=== PATIENT | female | born 1970 | race Caucasian/White ===

== ENCOUNTER 2022-01-18 14:51 | Outpatient (CLI) | payer OTHER, SELFPAY ==
[2022-01-18 20:05] LABS: Hematocrit 40.1 % (37.0-47.0); Mean Corpuscular HGB Conc 32.4 g/dl (32-36); Mean Corpuscular Hemoglobin 29.8 pg (26-34); Mean Platelet Volume 11.1 fl (7.4-10.4); Platelet Count Result 267 k/mm3 (150-375); Red Blood Count 4.36 M/mm3 (4.2-5.4); Red Cell Distribution Width 16.9 % (11.5-14.5); White Blood Count 12.1 K/mm3 (4.5-10.0)
[2022-01-18 20:20] LABS: Alanine Aminotransferase 62 U/L (4-35); Albumin Level 4.4 g/dL (3.5-5.1); Alkaline Phosphatase 96 U/L (38-126); Anion Gap 3 mmol/L (8-16); Aspartate Amino Transferase 64 U/L (14-36); Bilirubin,Total 0.3 mg/dL (0.2-1.3); Blood Urea Nitrogen 13 mg/dL (7-17); Calcium 9.6 mg/dL (8.4-10.2); Carbon Dioxide 32 mmol/L (22-30); Chloride 105 mmol/L (98-107); Cholesterol 230 mg/dL (0-200); Estimated Glomerular Filt Rate > 60; Glucose 85 mg/dL (65-110); HDL Direct 45 mg/dL; Potassium 4.3 mmol/L (3.4-5.0); Sodium 140 mmol/L (137-145); Triglycerides 178 mg/dL (<150)
[2022-01-18 20:31] LABS: LDL Cholesterol Direct 152 mg/dL
[2022-01-18 21:05] LABS: Hemoglobin A1C 5.8 % (<5.7)
[2022-01-21 13:56] LABS: Amphetamines NEGATIVE ng/mL (<500); Barbiturates NEGATIVE ng/mL (<300); Benzodiazepines NEGATIVE ng/mL (<100); Cocaine Metabolite NEGATIVE ng/mL (<100); Codeine NEGATIVE ng/mL (<50); Hydrocodone 380 ng/mL (<50); Hydromorphone 270 ng/mL (<50); Marijuana Metabolite NEGATIVE ng/mL (<20); Methadone Metabolite NEGATIVE ng/mL (<100); Morphine NEGATIVE ng/mL (<50); Norhydrocodone 810 ng/mL (<50); Opiates POSITIVE ng/mL (<100); Oxidant NEGATIVE mcg/mL (<200); pH 6.9 (4.5-9.0)
== END 2022-01-18 14:52 | disposition home or self-care (01) ==
LOC: ANHBWCLAB 14:53
PROVIDERS: PCP Family Medicine; Visit Provider Family Medicine
DX: Z00.00 Encounter for general adult medical examination without abnormal findings (principal); F32.A Depression, unspecified; F41.9 Anxiety disorder, unspecified; I10 Essential (primary) hypertension; M79.7 Fibromyalgia; E66.9 Obesity, unspecified
CPT/HCPCS: 36415; 80053; 80061; 80299; 83036; 84443; 85027

== ENCOUNTER 2022-02-22 15:09 | Outpatient (CLI) | payer OTHER, SELFPAY ==
--- NOTE | ~2022-02-22 | XR_ITS ---
XR chest 2V DATE: 02/22/2022 15:25 INDICATION: Cough, mild shortness of breath for 2 weeks TECHNIQUE: PA and lateral views COMPARISON: None FINDINGS: Normal heart size. No hilar or mediastinal enlargement. No pulmonary consolidation. No pleu ral effusion or pulmonary vascular congestion or pneumothorax. Mild pulmonary interstitial prominence ; is there a history of smoking? Diffuse osteopenia. IMPRESSION: No active cardiopulmonary disease Osteopenia Reviewed, dictated and finalized at location A.
[2022-02-22 19:15] LABS: Basophils Absolute Auto 0.1 K/mm3 (0.0-0.1); Basophils Percent Auto 0.6 % (0.2-1.2); Eosinophils Absolute Auto 0.4 K/mm3 (0-0.3); Eosinophils Percent Auto 3.7 % (0-4.4); Hematocrit 41.3 % (37.0-47.0); Hemoglobin 13.2 g/dL (12.0-15.0); Immature Granulocyte Absolute 0.07 K/mm3 (0.00-0.031); Immature Granulocyte Percent A 0.7 % (0-0.5); Lymphocytes Absolute Auto 2.71 K/mm3 (0.9-3.2); Lymphocytes Percent Auto 28.8 % (18.3-44.2); Mean Corpuscular Hemoglobin 29.9 pg (26-34); Mean Corpuscular Volume 93.7 fl (80-100); Mean Platelet Volume 11.3 fl (7.4-10.4); Monocytes Percent Auto 10.1 % (2.6-8.5); Neutrophils Absolute Auto 5.3 K/mm3 (1.3-6.7); Neutrophils Percent Auto 56.1 % (45.5-73.1); Platelet Count Result 248 k/mm3 (150-375); Red Blood Count 4.41 M/mm3 (4.2-5.4); Red Cell Distribution Width 15.7 % (11.5-14.5); White Blood Count 9.4 K/mm3 (4.5-10.0)
[2022-02-22 19:21] LABS: Appearance Urine Clear (Clear); Bilirubin Urine Negative (Negative); Color Urine Yellow (Yellow); Glucose Urine UA Negative (Negative); Ketones Urine Negative (Negative); Leukocyte Esterase Ur Negative LEU/UL (NEGATIVE); Nitrate Urine Negative (Negative); Protein Urine Negative (Negative); Urobilinogen Urine 0.2 mg/dL (<2.0)
[2022-02-22 19:32] LABS: Alanine Aminotransferase 22 U/L (4-35); Albumin Level 4.4 g/dL (3.5-5.1); Alkaline Phosphatase 76 U/L (38-126); Aspartate Amino Transferase 33 U/L (14-36); Bilirubin,Total 0.3 mg/dL (0.2-1.3)
[2022-02-22 19:39] LABS: Add Urine Microscopic? YES; Blood Urine Trace (Negative)
[2022-02-23 00:08] LABS: Hepatitis B Surface Antigen Negative (Negative)
[2022-02-23 00:13] LABS: HAV RESULT Negative (Negative); Hepatitis B Core IgM Result Negative (Negative)
[2022-02-23 00:25] LABS: Hepatitis C Virus Antibody Negative (Negative)
== END 2022-02-22 15:10 | disposition home or self-care (01) ==
LOC: ANHBWCLAB 15:10
PROVIDERS: PCP Family Medicine; Visit Provider Family Medicine
DX: R05.9 Cough, unspecified (principal); R74.8 Abnormal levels of other serum enzymes; R73.03 Prediabetes; E78.5 Hyperlipidemia, unspecified
CPT/HCPCS: 36415; 71046; 80074; 80076; 81001; 85025; 87086

== ENCOUNTER 2022-05-05 13:39 | Outpatient (CLI) | payer OTHER, SELFPAY ==
[2022-05-05 18:35] LABS: Basophils Absolute Auto 0.1 K/mm3 (0.0-0.1); Basophils Percent Auto 0.7 % (0.2-1.2); Eosinophils Absolute Auto 0.2 K/mm3 (0-0.3); Eosinophils Percent Auto 3.1 % (0-4.4); Hematocrit 38.7 % (37.0-47.0); Hemoglobin 12.2 g/dL (12.0-15.0); Immature Granulocyte Absolute 0.03 K/mm3 (0.00-0.031); Immature Granulocyte Percent A 0.4 % (0-0.5); Lymphocytes Absolute Auto 2.66 K/mm3 (0.9-3.2); Lymphocytes Percent Auto 35.8 % (18.3-44.2); Mean Corpuscular HGB Conc 31.5 g/dl (32-36); Mean Corpuscular Hemoglobin 28.8 pg (26-34); Mean Corpuscular Volume 91.3 fl (80-100); Mean Platelet Volume 11.6 fl (7.4-10.4); Monocytes Absolute Auto 0.7 K/mm3 (0.1-0.6); Monocytes Percent Auto 8.8 % (2.6-8.5); Neutrophils Absolute Auto 3.8 K/mm3 (1.3-6.7); Neutrophils Percent Auto 51.2 % (45.5-73.1); Platelet Count Result 250 k/mm3 (150-375); Red Blood Count 4.24 M/mm3 (4.2-5.4); Red Cell Distribution Width 14.5 % (11.5-14.5); White Blood Count 7.4 K/mm3 (4.5-10.0)
== END 2022-05-05 13:40 | disposition home or self-care (01) ==
LOC: ANHBWCLAB 13:40
PROVIDERS: PCP Family Medicine; Visit Provider Family Medicine
DX: D64.9 Anemia, unspecified (principal)
CPT/HCPCS: 36415; 85025

== ENCOUNTER 2022-08-15 00:49 | Day surgery (SDC) | payer OTHER, SELFPAY ==
[2022-07-28 14:32] VITALS: BMI 37.5
[2022-08-15 09:25] VITALS: BP 123/72; PULSE 90; RESP 18; TEMP 36.4; O2SAT 98; BMI 36.1
[2022-08-15] MEDS: LACTATED RINGERS 1,000 ML 150 ML IV CONT (09:48)
--- NOTE | 2022-08-15 09:57 | PM.HPGS ---
History of Present Illness History of Present Illness Consent: Risks, benefits, and alternatives have been discussed and questions answered. Patient agrees to proceed with procedure. Chief complaint: hx of colon polyps Narrative: Alice Ferreira is a 51 year old female here for screening colonoscopy, last one 10 years ago Review of Systems Constitutional: Constitutional: Denies headache(s) and Denies weakness Eyes: Eyes: Denies blurry vision ENT: Reports Normal hearing present, Denies headache(s) and Denies neck pain Cardiovascular: Cardiovascular: Denies chest pain and Denies dyspnea Respiratory: Respiratory: Denies dyspnea Gastrointestinal: Gastrointestinal: Reports no additional gastrointestinal complaints Genitourinary: Genitourinary: Denies dysuria Musculoskeletal: Musculoskeletal: Denies neck pain Integumentary/Breasts: Skin/Breast: Denies dry skin Neurologic: Reports Normal hearing present, Denies headache(s) and Denies weakness Psychiatric: Psychiatric: Denies anxiety Endocrine: Endocrine: Denies change in body appearance Hematologic/Lymphatic: Hematologic/Lymphatic: Denies easy bleeding Allergic/Immunologic: Allergic/Immunologic: Denies urticaria PMFSH Past Medical History Medical History (Updated 05/05/22 @ 13:12 by Ned Trotter MD) Anxiety Arthritis Fibromyalgia GERD (gastroesophageal reflux disease) Surgical History Surgical History (Updated 01/18/22 @ 13:23 by Kala Pruett [facility]) H/O: hysterectomy Family History Family History (Updated 01/18/22 @ 13:21 by Kala Pruett CMA) Father Alcohol abuse Mother Diabetes mellitus Hypertension Heart disease Cerebrovascular accident Depression Anxiety Sibling Diabetes mellitus Depression Anxiety Grandparent Alcohol abuse Diabetes mellitus Hypertension Grandparent Alcohol abuse Diabetes mellitus Hypertension Social History Social History (Updated 01/18/22 @ 13:24 by Kala Pruett [facility]) Smoking packs per day: 1 Smoking cigarettes per day: 20.0 Smoking status: Current every day smoker Tobacco type: cigarettes and e-cigarettes/vaping Alcohol intake: never Substance use: never Meds Home Medications and Allergies Home Medications Medication Instructions Recorded Confirmed Type albuterol sulfate 90 mcg/actuation 1 inh inhalation BID PRN 01/18/22 08/15/22 Rx aerosol inhaler (Ventolin HFA) bronchospasm #8.5 grams budesonide-formoterol HFA 160 2 puff inhalation Q12H #10.2 grams 01/18/22 08/15/22 Rx mcg-4.5 mcg/actuation aerosol inhaler (Symbicort) ergocalciferol (vitamin D2) 50,000 500,000 unit PO WEEKLY 01/18/22 08/15/22 History unit tablet cyclobenzaprine 10 mg tablet 10 mg PO TID PRN muscle spasm #90 05/01/22 08/15/22 Rx tabs pregabalin 200 mg capsule 200 mg PO BID #180 caps 07/14/22 08/15/22 Rx hydrocodone 5 mg-acetaminophen 325 1 tablet PO Q8H PRN pain #90 tabs 07/26/22 08/15/22 Rx mg tablet phentermine 37.5 mg capsule 37.5 mg PO DAILY #30 caps 08/02/22 08/15/22 Rx topiramate 50 mg tablet 50 mg PO BID #60 tabs 08/02/22 08/15/22 Rx trazodone 50 mg tablet 50 mg PO QHS PRN insomnia #90 tabs 08/02/22 08/15/22 Rx Allergies Allergy/AdvReac Type Severity Reaction Status Date / Time morphine Allergy Migraine Verified 08/15/22 09:34 trimethobenzamide Allergy Nausea Verified 08/15/22 09:34 [From [facility]] Vital Signs Vital Signs - 24 hr 08/15/22 09:25 Temperature 97.5 F L Pulse Rate 90 Respiratory Rate 18 Blood Pressure 123/72 Pulse Oximetry 98 Oxygen Delivery Room Air Exam Const: General: comfortable and no acute distress HENMT: General nose exam: Normal nares present Eyes: General: appearance normal, both eyes and all related structures Neck: Neck: no JVD Resp: Auscultation: clear to auscultation bilaterally Cardio: Rate: regular rate Rhythm: regular rhythm GI: Inspection: non-distended GI Palp: Yes Soft to palpation
--- NOTE | 2022-08-15 10:00 | WPDANESEPPF ---
Anes - Initial Pre Proc Eval Procedure: Operation Date: 08/15/22 10:30 Proposed Procedures p Screening Colonoscopy - Chris Brown MD Date/Time: 08/15/22 10:00 Surgeon: Chris Brown MD Pre Op Diagnosis: hx of colon polyps Patient Data Age: 51 Gender: F Height: 1.57 m Weight: 89.6 kg Last Vital Signs Temp 97.5 F L 08/15/22 09:25 Pulse 90 08/15/22 09:25 Resp 18 08/15/22 09:25 BP 123/72 08/15/22 09:25 Pulse Ox 98 08/15/22 09:25 O2 Del Method Room Air 08/15/22 09:25 Allergies Allergy/AdvReac Type Severity Reaction Status Date / Time morphine Allergy Migraine Verified 08/15/22 09:34 trimethobenzamide Allergy Nausea Verified 08/15/22 09:34 [From [facility]] Home Medications Medication Instructions Recorded Confirmed Type albuterol sulfate 90 mcg/actuation 1 inh inhalation BID PRN 01/18/22 08/15/22 Rx aerosol inhaler (Ventolin HFA) bronchospasm #8.5 grams budesonide-formoterol HFA 160 2 puff inhalation Q12H #10.2 grams 01/18/22 08/15/22 Rx mcg-4.5 mcg/actuation aerosol inhaler (Symbicort) ergocalciferol (vitamin D2) 50,000 500,000 unit PO WEEKLY 01/18/22 08/15/22 History unit tablet cyclobenzaprine 10 mg tablet 10 mg PO TID PRN muscle spasm #90 05/01/22 08/15/22 Rx tabs pregabalin 200 mg capsule 200 mg PO BID #180 caps 07/14/22 08/15/22 Rx hydrocodone 5 mg-acetaminophen 325 1 tablet PO Q8H PRN pain #90 tabs 07/26/22 08/15/22 Rx mg tablet phentermine 37.5 mg capsule 37.5 mg PO DAILY #30 caps 08/02/22 08/15/22 Rx topiramate 50 mg tablet 50 mg PO BID #60 tabs 08/02/22 08/15/22 Rx trazodone 50 mg tablet 50 mg PO QHS PRN insomnia #90 tabs 08/02/22 08/15/22 Rx Patient hx anesthesia problems: none Family hx anesthesia problems: none Results Review: All pre-operative results and documents have been reviewed as part of the pre-operative evaluation. [facility] Past Medical History Medical History (Updated 05/05/22 @ 13:12 by Ned Trotter MD) Anxiety Arthritis Fibromyalgia GERD (gastroesophageal reflux disease) Surgical History Surgical History (Updated 01/18/22 @ 13:[address] [facility]) H/O: hysterectomy Family History Family History (Updated 01/18/22 @ 13:21 by Kala Pruett CMA) Father Alcohol abuse Mother Diabetes mellitus Hypertension Heart disease Cerebrovascular accident Depression Anxiety Sibling Diabetes mellitus Depression Anxiety Grandparent Alcohol abuse Diabetes mellitus Hypertension Grandparent Alcohol abuse Diabetes mellitus Hypertension Social History Social History (Updated 01/18/22 @ 13:[address] [facility]) Smoking packs per day: 1 Smoking cigarettes per day: 20.0 Smoking status: Current every day smoker Tobacco type: cigarettes and e-cigarettes/vaping Alcohol intake: never Substance use: never Anes - Eval Final PreProcedure Day of Procedure 08/15/22 10:00 Patient weight: obese Heart: regular rate and rhythm Lungs: clear to auscultation Airway: Mallampati scale class II Neurological: alert and oriented Last oral intake: >/= 8 hours ASA classification: III Emergent: no Anesthetic plan: proceed Anesthesia type and monitoring: general GIVS and standard monitoring Results Review: All pre-operative results and documents have been reviewed as part of the pre-operative evaluation. Informed Consent: The patient's anesthetic plan and its attendant risks and benefits were discussed with the patient/family/POA. Questions were solicited and answers provided to the satisfaction of the patient/family/POA.
[2022-08-15 10:22] VITALS: BP 99/61; PULSE 81; RESP 18; O2SAT 99
[2022-08-15 10:32] VITALS: BP 110/69; PULSE 75; RESP 17; O2SAT 98
[2022-08-15 10:42] VITALS: BP 113/69; PULSE 76; RESP 18; O2SAT 97
== END 2022-08-15 10:49 | disposition home or self-care (01) ==
PROVIDERS: PCP Family Medicine; Visit Provider Internal Medicine Gastroenterology
PROC: 0DJD8ZZ Inspection of Lower Intestinal Tract, Via Natural or Artificial Opening Endoscopic (ICD-10-PCS; CPT 45378; principal; 2022-08-15 10:30)
DX: Z12.11 Encounter for screening for malignant neoplasm of colon (principal); K63.5 Polyp of colon; K64.8 Other hemorrhoids; K64.4 Residual hemorrhoidal skin tags; Z79.51 Long term (current) use of inhaled steroids; F41.9 Anxiety disorder, unspecified; M19.90 Unspecified osteoarthritis, unspecified site; M79.7 Fibromyalgia; K21.9 Gastro-esophageal reflux disease without esophagitis; F17.210 Nicotine dependence, cigarettes, uncomplicated; F17.290 Nicotine dependence, other tobacco product, uncomplicated; E66.9 Obesity, unspecified; Z68.36 Body mass index [BMI] 36.0-36.9, adult
CPT/HCPCS: 45385; 88305; J2704; J7120

== ENCOUNTER 2023-05-31 13:48 | Outpatient (CLI) | payer OTHER, SELFPAY ==
[2023-05-31 19:05] LABS: Alanine Aminotransferase 18 U/L (6-35); Albumin Level 4.4 g/dL (3.5-5.1); Alkaline Phosphatase 76 U/L (38-126); Anion Gap 7 mmol/L (8-16); Aspartate Amino Transferase 48 U/L (14-36); Bilirubin,Total 0.4 mg/dL (0.2-1.3); Blood Urea Nitrogen 7 mg/dL (7-17); Calcium 9.1 mg/dL (8.4-10.2); Carbon Dioxide 27 mmol/L (22-30); Chloride 106 mmol/L (98-107); Cholesterol 216 mg/dL (0-200); Estimated Glomerular Filt Rate > 60; Glucose 88 mg/dL (65-110); HDL Direct 55 mg/dL; Potassium 3.2 mmol/L (3.4-5.0); Sodium 140 mmol/L (137-145); Triglycerides 81 mg/dL (<150)
[2023-05-31 19:16] LABS: Basophils Absolute Auto 0.1 K/mm3 (0.0-0.1); Basophils Percent Auto 0.8 % (0.2-1.2); Eosinophils Absolute Auto 0.1 K/mm3 (0-0.3); Eosinophils Percent Auto 1.6 % (0-4.4); Hematocrit 35.9 % (37.0-47.0); Hemoglobin 11.3 g/dL (12.0-15.0); Immature Granulocyte Absolute 0.02 K/mm3 (0.00-0.031); Immature Granulocyte Percent A 0.3 % (0-0.5); Lymphocytes Absolute Auto 2.72 K/mm3 (0.9-3.2); Lymphocytes Percent Auto 42.8 % (18.3-44.2); Mean Corpuscular HGB Conc 31.5 g/dl (32-36); Mean Corpuscular Hemoglobin 28.8 pg (26-34); Mean Corpuscular Volume 91.3 fl (80-100); Mean Platelet Volume 11.1 fl (7.4-10.4); Monocytes Absolute Auto 0.6 K/mm3 (0.1-0.6); Monocytes Percent Auto 9.4 % (2.6-8.5); Neutrophils Absolute Auto 2.9 K/mm3 (1.3-6.7); Neutrophils Percent Auto 45.1 % (45.5-73.1); Platelet Count Result 290 k/mm3 (150-375); Red Blood Count 3.93 M/mm3 (4.2-5.4); Red Cell Distribution Width 15.3 % (11.5-14.5); White Blood Count 6.4 K/mm3 (4.5-10.0)
[2023-05-31 19:18] LABS: LDL Cholesterol Direct 129 mg/dL
[2023-06-02 04:47] LABS: LH 20.3 mIU/mL (***); Progesterone <0.2 ng/mL (***)
[2023-06-03 12:57] LABS: Testosterone Free 0.8 pg/mL (0.1-6.4); Testosterone Total 9 ng/dL (2-45)
[2023-06-08 17:50] LABS: Estrogen 221.6 pg/mL
== END 2023-05-31 13:49 | disposition home or self-care (01) ==
LOC: ANHBWCLAB 13:51
PROVIDERS: PCP Family Medicine; Visit Provider Nurse Practitioner
DX: Z00.00 Encounter for general adult medical examination without abnormal findings (principal); F32.A Depression, unspecified; F41.9 Anxiety disorder, unspecified; M79.7 Fibromyalgia; R79.89 Other specified abnormal findings of blood chemistry; E78.5 Hyperlipidemia, unspecified; I10 Essential (primary) hypertension; R74.8 Abnormal levels of other serum enzymes; M54.50 Low back pain, unspecified; D64.9 Anemia, unspecified
CPT/HCPCS: 36415; 80053; 80061; 82672; 83001; 83002; 84144; 84402; 84403; 84443; 85025

== ENCOUNTER 2023-06-15 12:10 | Outpatient (CLI) | payer OTHER, SELFPAY ==
[2023-06-15 18:52] LABS: Potassium 4.2 mmol/L (3.4-5.0)
== END 2023-06-15 12:11 | disposition home or self-care (01) ==
LOC: ANHBWCLAB 12:11
PROVIDERS: PCP Family Medicine; Visit Provider Nurse Practitioner Adult Health
DX: E87.6 Hypokalemia (principal)
CPT/HCPCS: 36415; 84132

== ENCOUNTER 2023-06-30 14:46 | Outpatient (CLI) | payer OTHER, SELFPAY ==
[2023-06-30 18:08] LABS: Hematocrit 34.6 % (37.0-47.0); Hemoglobin 10.9 g/dL (12.0-15.0); Mean Corpuscular HGB Conc 31.5 g/dl (32-36); Mean Corpuscular Hemoglobin 28.2 pg (26-34); Mean Corpuscular Volume 89.6 fl (80-100); Mean Platelet Volume 10.8 fl (7.4-10.4); Platelet Count Result 263 k/mm3 (150-375); Red Blood Count 3.86 M/mm3 (4.2-5.4); Red Cell Distribution Width 14.7 % (11.5-14.5); White Blood Count 9.6 K/mm3 (4.5-10.0)
[2023-06-30 18:29] LABS: CRP 0.7 mg/dL (<1.0)
[2023-06-30 18:35] LABS: Iron 43 ug/dL (37-170)
[2023-06-30 18:36] LABS: Alanine Aminotransferase 16 U/L (6-35); Alkaline Phosphatase 64 U/L (38-126); Aspartate Amino Transferase 30 U/L (14-36); Bilirubin,Total 0.2 mg/dL (0.2-1.3)
[2023-06-30 18:43] LABS: Erythrocyte Sedimentation Rate 23 mm/hr (0-20)
[2023-06-30 19:09] LABS: Ferritin 6.67 ng/mL (11.1-264)
[2023-06-30 20:15] LABS: Percent Iron Saturation 10 % (20-50)
[2023-07-08 04:05] LABS: Anti Nuclear Antibody Pattern Nuclear, Speckled
== END 2023-06-30 14:47 | disposition home or self-care (01) ==
PROVIDERS: PCP Family Medicine; Visit Provider Nurse Practitioner
DX: D64.9 Anemia, unspecified (principal); M79.7 Fibromyalgia; M19.90 Unspecified osteoarthritis, unspecified site; K92.2 Gastrointestinal hemorrhage, unspecified; R10.9 Unspecified abdominal pain; K64.8 Other hemorrhoids; K64.4 Residual hemorrhoidal skin tags; R74.01 Elevation of levels of liver transaminase levels
CPT/HCPCS: 36415; 80076; 82607; 82728; 83540; 83550; 85027; 85652; 86038; 86039; 86140

== ENCOUNTER 2023-07-06 12:53 | Outpatient (CLI) | payer OTHER, SELFPAY ==
--- NOTE | ~2023-07-06 | CT_ITS ---
EXAMINATION: CT abdomen pelvis w con DATE: 07/06/2023 13:27 INDICATION: Right abdominal cramping, anemia and rectal bleeding TECHNIQUE: Computed tomography (CT) of the abdomen and pelvis was performed with 100 mL Omnipaque-350 intravenous contrast. Automated exposure control and iterative reconstruction technique were employe d. The dose-length product was 809.66 mGy-cm. COMPARISON: None FINDINGS: Dependent atelectasis in the bilateral lower lobes. Heart size is normal. No pericardial or pleural e ffusion. 1 cm cyst in the right hepatic lobe along side the normal gallbladder. Spleen, pancreas, clarisse ateral adrenal glands and right kidney are normal. 4 mm cyst at the lower pole of the left kidney. Jose Cruz wels including the appendix are normal. The uterus is not identified and has likely been surgically r esected. Bladder is normal. No free intraperitoneal gas or fluid. No pathologically enlarged abdomina l or pelvic lymphadenopathy. Severe spondylosis at L5-S1. Otherwise mild degenerative skeletal change s in the pelvis and more cephalad lumbar and lower thoracic spine. IMPRESSION: 1. No acute intra-abdominal/pelvic process. Reviewed, dictated and finalized at location L.
== END 2023-07-06 12:54 ==
PROVIDERS: PCP Family Medicine; Visit Provider Nurse Practitioner
DX: K92.2 Gastrointestinal hemorrhage, unspecified (principal); R10.9 Unspecified abdominal pain
CPT/HCPCS: 74177; Q9967

== ENCOUNTER 2023-07-19 12:50 | Outpatient (CLI) | payer OTHER, SELFPAY ==
[2023-07-19 18:50] LABS: Anion Gap 4 mmol/L (8-16); Blood Urea Nitrogen 9 mg/dL (7-17); Calcium 8.9 mg/dL (8.4-10.2); Carbon Dioxide 25 mmol/L (22-30); Chloride 109 mmol/L (98-107); Estimated Glomerular Filt Rate > 60; Glucose 127 mg/dL (65-110); Sodium 138 mmol/L (137-145)
== END 2023-07-19 12:51 | disposition home or self-care (01) ==
LOC: ANHBWCLAB 12:52
PROVIDERS: PCP Family Medicine; Visit Provider Nurse Practitioner Adult Health
DX: E87.6 Hypokalemia (principal)
CPT/HCPCS: 36415; 80048

== ENCOUNTER 2023-08-22 11:16 | Outpatient (CLI) | payer OTHER, SELFPAY ==
[2023-08-22 18:40] LABS: Alanine Aminotransferase 18 U/L (6-35); Albumin Level 4.4 g/dL (3.5-5.1); Alkaline Phosphatase 65 U/L (38-126); Anion Gap 8 mmol/L (8-16); Aspartate Amino Transferase 56 U/L (14-36); Bilirubin,Total 0.4 mg/dL (0.2-1.3); Blood Urea Nitrogen 11 mg/dL (7-17); Calcium 9.3 mg/dL (8.4-10.2); Carbon Dioxide 27 mmol/L (22-30); Chloride 107 mmol/L (98-107); Estimated Glomerular Filt Rate > 60; Glucose 95 mg/dL (65-110); Potassium 4.3 mmol/L (3.4-5.0); Sodium 142 mmol/L (137-145)
[2023-08-22 19:13] LABS: Appearance Urine Clear (Clear); Bilirubin Urine Negative (Negative); Blood Urine Negative (Negative); Color Urine Yellow (Yellow); Glucose Urine UA Negative (Negative); Ketones Urine Negative (Negative); Leukocyte Esterase Ur Negative LEU/UL (NEGATIVE); Nitrate Urine Negative (Negative); Protein Urine Negative (Negative); Specific Grav Ur 1.017 (1.001-1.035); pH Urine 7.5 (5.0-9.0)
[2023-08-22 19:18] LABS: Add Urine Microscopic? NO
== END 2023-08-22 11:17 | disposition home or self-care (01) ==
PROVIDERS: PCP Family Medicine; Visit Provider Nurse Practitioner Adult Health
DX: E87.6 Hypokalemia (principal); R39.9 Unspecified symptoms and signs involving the genitourinary system
CPT/HCPCS: 36415; 80053; 81003

== ENCOUNTER 2023-10-02 10:35 | Outpatient (CLI) | payer OTHER, SELFPAY ==
[2023-10-02 19:25] LABS: Basophils Absolute Auto 0.1 K/mm3 (0.0-0.1); Basophils Percent Auto 0.7 % (0.2-1.2); Eosinophils Absolute Auto 0.2 K/mm3 (0-0.3); Eosinophils Percent Auto 3.3 % (0-4.4); Hematocrit 36.4 % (37.0-47.0); Hemoglobin 11.1 g/dL (12.0-15.0); Immature Granulocyte Absolute 0.04 K/mm3 (0.00-0.031); Immature Granulocyte Percent A 0.6 % (0-0.5); Lymphocytes Absolute Auto 1.95 K/mm3 (0.9-3.2); Lymphocytes Percent Auto 28.4 % (18.3-44.2); Mean Corpuscular HGB Conc 30.5 g/dl (32-36); Mean Corpuscular Hemoglobin 27.6 pg (26-34); Mean Corpuscular Volume 90.5 fl (80-100); Mean Platelet Volume 11.2 fl (7.4-10.4); Monocytes Absolute Auto 0.7 K/mm3 (0.1-0.6); Monocytes Percent Auto 9.5 % (2.6-8.5); Neutrophils Percent Auto 57.5 % (45.5-73.1); Platelet Count Result 239 k/mm3 (150-375); Red Blood Count 4.02 M/mm3 (4.2-5.4); Red Cell Distribution Width 16.4 % (11.5-14.5); White Blood Count 6.9 K/mm3 (4.5-10.0)
[2023-10-02 20:04] LABS: Alanine Aminotransferase 26 U/L (6-35); Albumin Level 4.1 g/dL (3.5-5.1); Alkaline Phosphatase 73 U/L (38-126); Anion Gap 7 mmol/L (8-16); Aspartate Amino Transferase 56 U/L (14-36); Bilirubin,Total 0.3 mg/dL (0.2-1.3); Blood Urea Nitrogen 7 mg/dL (7-17); Calcium 9.1 mg/dL (8.4-10.2); Carbon Dioxide 25 mmol/L (22-30); Chloride 108 mmol/L (98-107); Estimated Glomerular Filt Rate > 60; Glucose 138 mg/dL (65-110); Sodium 140 mmol/L (137-145)
[2023-10-02 22:37] LABS: Hemoglobin A1C 5.5 % (<5.7)
== END 2023-10-02 10:36 | disposition home or self-care (01) ==
LOC: ANHBWCLAB 10:36
PROVIDERS: PCP Family Medicine; Visit Provider Family Medicine
DX: D64.9 Anemia, unspecified (principal); R74.01 Elevation of levels of liver transaminase levels; R73.03 Prediabetes
CPT/HCPCS: 36415; 80053; 83036; 85025

== ENCOUNTER 2024-04-01 10:10 | Outpatient (CLI) | payer OTHER, SELFPAY ==
[2024-04-01 19:34] LABS: Hematocrit 45.6 % (37.0-47.0); Hemoglobin 14.1 g/dL (12.0-15.0); Mean Corpuscular HGB Conc 30.9 g/dl (32-36); Mean Corpuscular Hemoglobin 28.7 pg (26-34); Mean Corpuscular Volume 92.7 fl (80-100); Mean Platelet Volume 11.5 fl (7.4-10.4); Platelet Count Result 250 k/mm3 (150-375); Red Blood Count 4.92 M/mm3 (4.2-5.4); White Blood Count 7.7 K/mm3 (4.5-10.0)
[2024-04-01 20:01] LABS: Alanine Aminotransferase 13 U/L (6-35); Albumin Level 4.6 g/dL (3.5-5.1); Alkaline Phosphatase 67 U/L (38-126); Anion Gap 9 mmol/L (4-12); Aspartate Amino Transferase 64 U/L (14-36); Bilirubin,Total 0.6 mg/dL (0.2-1.3); Blood Urea Nitrogen 9 mg/dL (7-17); Calcium 9.8 mg/dL (8.4-10.2); Carbon Dioxide 25 mmol/L (22-30); Chloride 111 mmol/L (98-107); Cholesterol 205 mg/dL (0-200); Estimated Glomerular Filt Rate > 60; Glucose 80 mg/dL (65-110); HDL Direct 49 mg/dL; Potassium 4.3 mmol/L (3.4-5.0); Sodium 145 mmol/L (137-145); Triglycerides 114 mg/dL (<150)
[2024-04-01 20:12] LABS: LDL Cholesterol Direct 123 mg/dL
[2024-04-01 21:02] LABS: Hemoglobin A1C 5.1 % (<5.7)
== END 2024-04-01 10:11 | disposition home or self-care (01) ==
LOC: ANHBWCLAB 10:12
PROVIDERS: PCP Family Medicine; Visit Provider Family Medicine
DX: R74.01 Elevation of levels of liver transaminase levels (principal); D64.9 Anemia, unspecified; E66.9 Obesity, unspecified; F32.A Depression, unspecified; F41.9 Anxiety disorder, unspecified; I10 Essential (primary) hypertension; M19.90 Unspecified osteoarthritis, unspecified site; M79.7 Fibromyalgia; R73.03 Prediabetes; R74.8 Abnormal levels of other serum enzymes
CPT/HCPCS: 36415; 80053; 80061; 83036; 85027

== ENCOUNTER 2024-07-08 11:04 | Outpatient (CLI) | payer OTHER, SELFPAY ==
--- NOTE | ~2024-07-08 | XR_ITS ---
XR knee LT 3V Ordering provider: Ned Trotter MD History: . M25.569 - Pain in unspecified knee . Comparison: None. FINDINGS: BONES: No acute fracture or dislocation. JOINT SPACES: Normal. SOFT TISSUES: Normal. IMPRESSION: No acute osseous abnormality left knee. Reviewed, dictated and finalized at location A.
== END 2024-07-08 11:05 | disposition home or self-care (01) ==
LOC: ANHLAB 11:06 → ANHIMG 11:07
PROVIDERS: PCP Family Medicine; Visit Provider Family Medicine
DX: M25.562 Pain in left knee (principal); R76.8 Other specified abnormal immunological findings in serum
CPT/HCPCS: 73562

== ENCOUNTER 2024-10-28 11:34 | Outpatient (CLI) | payer OTHER, SELFPAY ==
[2024-10-28 19:27] LABS: Hemoglobin 13.4 g/dL (12.0-15.0); Mean Corpuscular HGB Conc 32.7 g/dl (32-36); Mean Corpuscular Hemoglobin 30.4 pg (26-34); Mean Platelet Volume 10.6 fl (7.4-10.4); Platelet Count Result 256 k/mm3 (150-375); Red Blood Count 4.41 M/mm3 (4.2-5.4); Red Cell Distribution Width 14.4 % (11.5-14.5); White Blood Count 8.3 K/mm3 (4.5-10.0)
[2024-10-28 19:48] LABS: Alanine Aminotransferase 18 U/L (6-35); Albumin Level 4.2 g/dL (3.5-5.1); Alkaline Phosphatase 62 U/L (38-126); Anion Gap 0 mmol/L (4-12); Aspartate Amino Transferase 35 U/L (14-36); Bilirubin,Total 0.4 mg/dL (0.2-1.3); Blood Urea Nitrogen 8 mg/dL (7-17); Calcium 9.1 mg/dL (8.4-10.2); Carbon Dioxide 31 mmol/L (22-30); Chloride 108 mmol/L (98-107); Estimated Glomerular Filt Rate > 60; Glucose 81 mg/dL (65-110); Potassium 4.7 mmol/L (3.4-5.0); Sodium 139 mmol/L (137-145)
[2024-10-28 22:04] LABS: Hemoglobin A1C 5.7 % (<5.7)
== END 2024-10-28 11:35 | disposition home or self-care (01) ==
LOC: ANHBWCLAB 11:35
PROVIDERS: PCP Family Medicine; Visit Provider Family Medicine
DX: D64.9 Anemia, unspecified (principal); R73.03 Prediabetes; I10 Essential (primary) hypertension; R76.8 Other specified abnormal immunological findings in serum; M25.569 Pain in unspecified knee
CPT/HCPCS: 36415; 80053; 83036; 85027

== ENCOUNTER 2025-11-03 12:03 | Outpatient (CLI) | payer OTHER, SELFPAY ==
[2025-11-03 18:51] LABS: Hematocrit 37.7 % (37.0-47.0); Hemoglobin 12.4 g/dL (12.0-15.0); Immature Granulocyte Percent A 0.3 % (0-0.5); Lymphocytes Absolute Auto 2.24 K/mm3 (0.9-3.2); Mean Corpuscular HGB Conc 32.9 g/dl (32-36); Mean Corpuscular Hemoglobin 29.8 pg (26-34); Mean Corpuscular Volume 90.6 fl (80-100); Nucleated Red Blood Cells Absolute Auto 0.000 K/mm3 (0.0-0.012); Nucleated Red Blood Cells Perc 0.0 % (0.0-0.2); Platelet Count Result 227 k/mm3 (150-375); Red Blood Count 4.16 M/mm3 (4.2-5.4); White Blood Count 8.6 K/mm3 (4.5-10.0)
[2025-11-03 18:57] LABS: Hemoglobin A1C 5.4 % (<5.7)
[2025-11-03 19:47] LABS: Alanine Aminotransferase 14 U/L (6-35); Albumin Level 3.9 g/dL (3.5-5.1); Alkaline Phosphatase 66 U/L (38-126); Anion Gap 2 mmol/L (4-12); Aspartate Amino Transferase 50 U/L (14-36); Bilirubin,Total 0.4 mg/dL (0.2-1.3); Blood Urea Nitrogen 12 mg/dL (7-17); Calcium 9.1 mg/dL (8.4-10.2); Carbon Dioxide 29 mmol/L (22-30); Chloride 106 mmol/L (98-107); Cholesterol 188 mg/dL (0-200); Estimated Glomerular Filt Rate > 60; Glucose 99 mg/dL (65-110); HDL Direct 49 mg/dL; Potassium 3.8 mmol/L (3.4-5.0); Sodium 137 mmol/L (137-145); Total Protein 6.9 g/dL (6.3-8.2); Triglycerides 66 mg/dL (<150)
[2025-11-03 20:42] LABS: Vitamin B12 396.0 pg/mL (239-931)
== END 2025-11-03 12:04 | disposition home or self-care (01) ==
LOC: ANHBWCLAB 12:04
PROVIDERS: PCP Family Medicine; Visit Provider Family Medicine
DX: E78.5 Hyperlipidemia, unspecified (principal); I10 Essential (primary) hypertension; R73.03 Prediabetes; E66.9 Obesity, unspecified; K21.9 Gastro-esophageal reflux disease without esophagitis; Z00.00 Encounter for general adult medical examination without abnormal findings; F41.9 Anxiety disorder, unspecified; F32.A Depression, unspecified; R76.89 Other specified abnormal immunological findings in serum
CPT/HCPCS: 36415; 80053; 80061; 82172; 82306; 82607; 83036; 85025

== ENCOUNTER 2025-11-03 12:18 | Emergency (ER) | payer OTHER, SELFPAY ==
[2025-11-03 12:24] VITALS: BP 131/63; PULSE 79; RESP 20; TEMP 36.8; O2SAT 98
--- NOTE | 2025-11-03 12:52 | ED.URI ---
HPI - URI/Sore Throat General Chief Complaint: Upper Respiratory Infection Stated Complaint: Cough/Body Aches/Chest Congestion Time Seen by Provider: 11/03/25 12:40 Source: patient and RN notes reviewed Mode of arrival: ambulatory Limitations: no limitations History of Present Illness HPI Narrative: 55-year-old female presents Express Care complaining of cough, sinus pressure, mucopurulent nasal drainage, headaches, chest congestion for little over a week. Patient says symptoms are getting worse. Patient denies any fevers or by eczema chills, nausea vomiting, diarrhea, chest pain, difficulty breathing, any other symptoms. Patient tried [id number] cold and flu medication of relief. Related Data Allergies Allergy/AdvReac Type Severity Reaction Status Date / Time morphine Allergy Migraine Verified 11/03/25 12:28 trimethobenzamide (From Allergy Nausea Verified 11/03/25 12:28 Tigan) Review of Systems Review of Systems: CONSTITUTIONAL: Denies fever, chills, or sweats. EYES: Denies visual changes, redness, or discharge. ENT: Denies rhinorrhea, sore throat, or otalgia. Positive for congestion, mucopurulent nasal drainage, sinus pressure. CARDIOVASCULAR: Denies chest pain, palpitations, or edema. RESPIRATORY: Positive for cough. Negative for wheezing or Dyspnea. GASTROINTESTINAL: Denies abdominal pain, nausea, vomiting, or diarrhea. GENITOURINARY: Denies dysuria or hematuria. SKIN: Denies rash or itching. MUSCULOSKELETAL: Denies back pain, joint pain, or myalgia. NEUROLOGIC: Positive for headaches. Negative for numbness, or weakness. PSYCHIATRIC: Denies anxiety or depression. All other systems reviewed are negative, except as documented in HPI. [facility] Past Medical History Medical History Encounter for immunization GI bleeding External hemorrhoid Internal hemorrhoid Abdominal cramping Fibromyalgia GERD (gastroesophageal reflux disease) Arthritis Anxiety Surgical History Surgical History H/O: hysterectomy Family History Family History Father Alcohol abuse Mother Diabetes mellitus Hypertension Heart disease Cerebrovascular accident Depression Anxiety Sibling Diabetes mellitus Depression Anxiety Grandparent Alcohol abuse Diabetes mellitus Hypertension Grandparent Alcohol abuse Diabetes mellitus Hypertension Social History Social History Smoking packs per day: 1 Smoking cigarettes per day: 20.0 Smoking status: Current every day smoker Tobacco type: cigarettes and e-cigarettes/vaping Alcohol intake: never Substance use: never Lack of Transportation: No Lack of Food: Sometimes True Current Housing: I Have Housing Concerned About Future Housing: No Difficulty Paying Gas/Electric Bills: No Difficulty Paying for Meds: No Currently Unemployed: No Education: Trade/Vocational Certificate Difficulty w/ Childcare or Family Care: No Living arrangements: alone Comments At the time of my signature, I reviewed and agree with the nursing past medical, surgical, social, and family history. There is no relevant family history pertinent to the patient complaint. Exam Narrative: GENERAL: This is a well-nourished, well-developed adult, in no apparent distress. They are non ill-appearing, nontoxic appearing. HEAD: normocephalic, atraumatic. EYES: Sclera clear/white. Conjunctiva normal. Vision is grossly intact. Extraocular movements intact EARS: External ears normal, auditory canals clear and without drainage, TMs normal without perforation. Hearing grossly intact. NOSE: External nose normal with no obvious nasal discharge, nasal turbinates erythematous, no rhinorrhea. THROAT: Mucous membranes moist, posterior pharynx erythematous. Uvula midline. Frontal sinus tenderness to palpation. NECK: Neck supple, non-tender without lymphadenopathy, masses or thyromegaly. CARDIOVASCULAR: Regular rate and rhythm without murmurs, gallops, or rubs. RESPIRATORY: Clear to auscultation. Breath sounds equal bilaterally. No wheezes, rales, or rhonchi. SKIN: warm, Dry, intact with no suspicious lesions or rash, good texture and turgor. NEURO: awake, alert, and oriented to person, place and time. There were no obvious focal neurologic abnormalities. EXTREMITIES: No joint tenderness, effusion, or edema noted. BACK: Nontender without deformity. No CVA tenderness. Course Course Level of Care: Express Care Visit Vital Signs Vital signs: Vital Signs Temperature 98.2 F 11/03/25 12:24 Pulse Rate 79 11/03/25 12:24 Respiratory Rate 20 11/03/25 12:24 Blood Pressure 131/63 11/03/25 12:24 Pulse Oximetry 98 11/03/25 12:24 Oxygen Delivery Room Air 11/03/25 12:24 Temperature 98.2 F 11/03/25 12:24 Pulse Rate 79 11/03/25 12:24 Respiratory Rate 20 11/03/25 12:24 Blood Pressure 131/63 11/03/25 12:24 Pulse Oximetry 98 11/03/25 12:24 Oxygen Delivery Room Air 11/03/25 12:24 MDM MDM Narrative Medical decision making narrative: Patient likely has bacterial sinusitis given worsening symptoms. Will treat with Augmentin. Discussed physical exam findings. Advised supportive measures and signs/symptoms to go to the ER. Pt is appropriate for outpt treatment and f/u. Differential Diagnosis Differential Diagnosis: Differential diagnostic considerations for upper respiratory infection include upper respiratory infection, croup, otitis media, sinusitis, viral infection, bronchitis, influenza, pharyngitis, strep, uvulitis. Critical Care Time Critical Care Time Critical Care Time: No Discharge Plan Discharge Clinical Impression: Sinusitis Qualifiers: Sinusitis location: unspecified location Chronicity: acute Recurrence: non-recurrent Qualified Code(s): J01.90 - Acute sinusitis, unspecified Patient Disposition: Home Condition: Stable Instructions: Antibiotic Form, Sinusitis (ED) Additional Instructions: Take the antibiotics as directed and complete the course even if you start to feel better. You may use a Neti pot saline rinse 3 times a day with lukewarm distilled water Continue to take Tylenol or Motrin as needed for pain or fever. Follow instructions on the bottle. Use a humidifier or vaporizer at night. Drink plenty of water. 8-10 glasses per day. Use flonase 2 times per day for 5 days then as needed Take mucinex 2 times per day and be sure to take with 8oz of water. Follow up with Primary provider in 3-5 days Please go to the ER if he develops any difficulty breathing, chest pain, vomiting, worsening symptoms, or any other serious concerns Patient Language: Nepali Prescriptions: New amoxicillin-pot clavulanate 875-125 mg tablet 1 tablet PO Q12H 7 Days Qty: 14 0RF No Action albuterol sulfate 90 mcg/actuation HFA aerosol inhaler See Rx Instructions .ROUTE .COMPLEX Qty: 8.5 3RF Dose Instruction: INHALE 1 PUFF TWICE A DAY NEEDED FOR BRONCHOSPASM Rx Instructions: INHALE 1 PUFF TWICE A DAY NEEDED FOR BRONCHOSPASM budesonide-formoterol [Symbicort] 160-4.5 mcg/actuation HFA aerosol inhaler 2 puff inhalation Q12H Qty: 10.2 3RF trazodone 150 mg tablet 150 mg PO QHS PRN (Reason: insomnia) Qty: 100 1RF pregabalin 200 mg capsule 200 mg PO BID Qty: 180 1RF rizatriptan [Maxalt] 10 mg tablet See Rx Instructions PO .COMPLEX Qty: 14 3RF Rx Instructions: take 1 tab at onset of headache; if no relief may repeat 1 tab after at least 2 hrs; max = 3 tabs/24 hr PO hydrocodone-acetaminophen 5-325 mg tablet 1 tablet PO Q8H PRN (Reason: pain) Qty: 90 0RF bupropion HCl 150 mg tablet extended release 24 hr See Rx Instructions .ROUTE .COMPLEX Qty: 90 0RF Dose Instruction: TAKE 1 TABLET BY MOUTH EVERY DAY IN THE MORNING Rx Instructions: TAKE 1 TABLET BY MOUTH EVERY DAY IN THE MORNING doxepin 25 mg capsule See Rx Instructions .ROUTE .COMPLEX Qty: 90 0RF Dose Instruction: TAKE 1 CAPSULE BY MOUTH DAILY AT BEDTIME Rx Instructions: TAKE 1 CAPSULE BY MOUTH DAILY AT BEDTIME Follow-up/Referrals: Ned Trotter MD [Primary Care Provider, Family Practice] Stand Alone Forms: Work/School Release IP Time of Disposition: 12:48
== END 2025-11-03 12:53 | disposition home or self-care (01) ==
PROVIDERS: PCP Family Medicine
DX: J01.90 Acute sinusitis, unspecified (principal); F17.210 Nicotine dependence, cigarettes, uncomplicated; F17.290 Nicotine dependence, other tobacco product, uncomplicated; M79.7 Fibromyalgia; K21.9 Gastro-esophageal reflux disease without esophagitis; M19.90 Unspecified osteoarthritis, unspecified site; F41.9 Anxiety disorder, unspecified
CPT/HCPCS: 99213; G0463

== ENCOUNTER 2025-11-14 08:19 | Outpatient (CLI) | payer OTHER, SELFPAY ==
--- NOTE | ~2025-11-14 | CT_ITS ---
EXAMINATION:CT lung screening DATE: 11/14/2025 08:31 INDICATION: Screening TECHNIQUE: Computed tomography (CT) of the chest was performed without intravenous contrast. The dose-length product (DLP) was 81.79 mGy-cm. COMPARISON: None. FINDINGS: A 7.5 mm noncalcified left upper lobe nodule image 45 series 4. 5.4 mm subpleural noncalcified nodule anterior right lung base image 80 series 4. 4 mm calcified left lower lobe nodule image 60 series 4. The remainder the exam appears normal. IMPRESSION:Noncalcified lung nodules require additional evaluation or short interval surveillance. Lung RADS 4. RECOMMENDATION: Correlate with PET/CT or follow-up chest CT in 3 months. Reviewed, dictated and finalized at location A. [employer] IMPRESSION:Noncalcified lung nodules require additional evaluation or short int erval surveillance. Lung RADS 4. RECOMMENDATION: Correlate with PET/CT or follow-up chest CT in 3 months.
== END 2025-11-14 08:20 | disposition home or self-care (01) ==
LOC: MICIMG 08:20
PROVIDERS: PCP Family Medicine; Visit Provider Family Medicine
DX: Z12.2 Encounter for screening for malignant neoplasm of respiratory organs (principal); Z87.891 Personal history of nicotine dependence
CPT/HCPCS: 71271